=== PATIENT | female | born 1995 | race Caucasian/White ===

== ENCOUNTER 2024-09-21 07:00 | Outpatient (CLI) | payer OTHER, SELFPAY ==
--- NOTE | ~2024-09-21 | XR_ITS ---
EXAMINATION: XR cervical spine 4-5V DATE: 09/21/2024 08:02 INDICATION: Neck pain. TECHNIQUE: 5 views of cervical spine including standing views were obtained. COMPARISON: None. 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 Vertebral body heights and intervertebral disc hei ghts are normal. At C6-C7, there is mild left facet joint osteoarthritis. At C6-C7, there is mild lef t uncovertebral joint osteoarthritis. At C6-C7, there is mild left neural foraminal stenosis. No cent ral canal stenosis. IMPRESSION: 1. Mild cervical spondylosis. Reviewed, dictated and finalized at location A. DMAN
--- NOTE | ~2024-09-21 | XR_ITS ---
EXAMINATION: XR thoracic spine 2V DATE: 09/21/2024 08:02 INDICATION: Mid back pain. TECHNIQUE: 3 views of thoracic spine standing were obtained. COMPARISON: None. FINDINGS: There is 7 degrees dextrocurvature of thoracic spine. There is mild chronic anterior wedgin g of 2 midthoracic vertebral bodies. Intervertebral disc heights are normal. There are endplate osteo phytes at multiple levels. IMPRESSION: 1. Mild thoracic spondylosis. Reviewed, dictated and finalized at location A. MER MACHINE
--- NOTE | ~2024-09-21 | XR_ITS ---
EXAMINATION: XR lumbar spine 2-3V DATE: 09/21/2024 08:02 INDICATION: Low back pain. TECHNIQUE: 3 views of lumbar spine standing were obtained. COMPARISON: None. FINDINGS: Alignment is normal. Vertebral body heights and intervertebral disc heights are normal. The facet joints are normal. IMPRESSION: 1. Normal lumbar spine. Reviewed, dictated and finalized at location A. [employer] IMPRESSION: 1. Normal lumbar spine.
--- NOTE | ~2024-09-21 | XR_ITS ---
EXAMINATION: XR pelvis 1-2V DATE: 09/21/2024 08:02 INDICATION: Bilateral sacroiliac joint pain. TECHNIQUE: An anteroposterior view of the pelvis was obtained. COMPARISON: None. FINDINGS: Alignment is normal. No fracture. There is mild osteoarthritis of the sacroiliac joints and right hip joint characterized by tiny osteophytes. IMPRESSION: 1. Mild polyarticular osteoarthritis. Reviewed, dictated and finalized at location A. H FIXER
== END 2024-09-21 07:01 | disposition home or self-care (01) ==
PROVIDERS: PCP Nurse Practitioner Family; Visit Provider Chiropractor
DX: M47.894 Other spondylosis, thoracic region (principal); M53.3 Sacrococcygeal disorders, not elsewhere classified; M47.892 Other spondylosis, cervical region
CPT/HCPCS: 72050; 72070; 72100; 72170